=== PATIENT | male | born 1965 | race Caucasian/White ===

== ENCOUNTER 2021-02-27 08:47 | Day surgery (SDC) | payer OTHER ==
[2021-02-27 08:55] LABS: Absolute Lymphocytes (CBC) 2.4 K/uL (0.7-4.9); Basophils % 0.7 % (0-1.3); Hematocrit 44.3 % (39.6-49.0); Lymphocytes % 31.6 % (15.3-44.8); MPV 7.8 fL (7.6-11.3); RBC Red Blood Cell Count 4.85 M/uL (4.33-5.43)
--- NOTE | 2021-02-27 08:59 | RAD REPORT ---
EXAM DESCRIPTION: RAD - Chest Pa And Lat (2 Views) - 02/27/2021 8:42 am CLINICAL HISTORY: preop, pending cystoscopy COMPARISON: Two view chest April 2013 TECHNIQUE: Frontal and lateral views of the chest were obtained. FINDINGS: The lungs are clear. Interstitial pattern matches comparison. Heart size is normal and ce ntral vasculature is within normal limits. No pleural effusion or pneumothorax seen. No acute bony finding noted. No aortic abnormality. IMPRESSION: No acute cardiopulmonary process. No significant change from comparison study.
[2021-02-27 09:07] LABS: Protime INR 1.02
[2021-02-27] MEDS ORDERED: Gentamicin Inj 240 MG in NA CHLORIDE 0.9% 100 ML IV ONE (09:30)
[2021-02-27] MEDS ORDERED: AMPICILLIN SODIUM 2 GM in NA CHLORIDE 0.9% 100 ML IVPB ONE (09:30)
[2021-02-27] MEDS ORDERED: Ringers Lactate 1,000 ML IV ONE (09:39)
[2021-02-27] MEDS ORDERED: FENTANYL CITR 100 MCG/2 ML ONE ×2 (13:12→14:10)
[2021-02-27] MEDS ORDERED: propofoL 200 MG/20 ML VIAL IV ONE (13:12)
[2021-02-27] MEDS ORDERED: MIDAZOLAM HCL 2 MG/2 ML INJ ONE (13:12)
[2021-02-27] MEDS ORDERED: KETOROLAC 30 MG/ML INJ ONE (13:50)
[2021-02-27] MEDS ORDERED: ONDANSETRON 4 MG/2 ML VIAL ONE (13:51)
[2021-02-27] MEDS ORDERED: EPHEDRINE SULF 50 MG/ML VIAL ONE (14:00)
[2021-02-27] MEDS ORDERED: NS 0.9% VIAL 10 ML ONE (14:00)
--- NOTE | 2021-02-27 14:28 | RAD REPORT ---
EXAM DESCRIPTION: RAD - Urethrocystogrphy Retrograde - 02/27/2021 2:17 pm CLINICAL HISTORY: ICD N 20.0 FINDINGS: 18 fluoroscopic spot images obtained. Fluoroscopy time 0.1 minutes Left ureter was cannulated and contrast administered. Subsequently an ureteral stent was placed. Exam ination was performed by Dr Horn
[2021-02-27] MEDS ORDERED: HYDROCODONE/APAP 5/325 MG TAB PO PRN (14:47)
[2021-02-27] MEDS ORDERED: PHENAZOPYRIDINE 100MG TAB PO ONE (14:47)
[2021-02-27 15:18] VITALS: BP 132/77; TEMP 97.3; O2SAT 100
--- NOTE | 2021-02-27 16:42 | EKG ---
Test Date: 2021-02-27 Test Time: 07:35:27 Home Care Companion: LYLE MEASUREMENT RESULTS: Intervals: Rate: 50 ND: 200 QRSD: 102 QT: 446 QTc: 406 [place]: P: 39 ND: 200 QRS: 2 T: 22 INTERPRETIVE STATEMENTS: Sinus bradycardia Incomplete right bundle branch block Possible Inferior infarct, age undetermined Abnormal ECG No previous ECG available for comparison Electronically Signed On 02-27-21 16:42:01 CDT by Mello Paris
[2021-02-27] MEDS ORDERED: SUCCINYLCHOLINE 20 MG/ML (10 ML) IV ONE (16:47)
--- NOTE | 2021-02-27 23:47 | OP ---
Surgeon: JIM DISLA Preoperative Diagnoses: 1.Left obstructive ureterolithiasis approximately 9 mm. 2.Bilateral nephrolithiasis. Postoperative Diagnoses: 1.Left obstructive ureterolithiasis approximately 9 mm. 2.Bilateral nephrolithiasis. Principle Procedures: 1.Cystoscopy. 2.Left retrograde pyelography. 3.Left ureteroscopy with laser lithotripsy. 4.Left ureteral stent placement. Indication For Procedure: Mr. Kevin is a 56-year-old gentleman who presented to the [facility] last week with severe left flank pain associated with the presence of a proximally obstructing approx imately 9 mm mass of stone in the ureter. He had no evidence of acute kidney injury and suggested he was able to manage his pain over the weekend, and so he was scheduled for stent placement with possi ble definitive management of the stone today. Procedure In Detail: The patient was consented in the preoperative holding area before being transfe rred to the operative suite where general anesthesia was induced. He was given ampicillin and gentam icin 240 mg IV antimicrobial prophylaxis and pneumo boots were provided for DVT prophylaxis. He was placed in the lithotomy position, padded and secured to the table appropriately. His genitalia were prepped using Hibiclens and he was draped in standard fashion. The case was begun using a 22-Lao rigid cystoscope to traverse the urethra and into the bladder with ease. The bladder was surveyed, a nd no mucosal lesions, foreign bodies or stones were noted throughout. The ureteral orifices were or thotopic in location, and the left ureteral orifice was cannulated using a 5-Lao ureteral access c atheter and the tip of a Sensor wire. A retrograde pyelogram was then performed. Left retrograde pyelography: Using a 70:30 mixture of Omnipaque and saline, contrast was injected via the 5-Lao ureteral access catheter and did propagate up the distal into the mid ureter where a filling defect was noted with i njection of contrast around it. Of note, on lacquerer imaging taken prior to contrast injection, there w as a radiopaque density in the exact same region likely consistent with a stone. The contrast contin ued on and entered the renal pelvis with ease, which was moderately dilated with some mild caliectasi s. As a result, I then passed the Sensor wire up the 5-Lao ureteral access catheter and it did co il in the upper pole of the kidney. I then passed a dual-lumen catheter up over the Sensor wire into the mid proximal ureter just distal to the stone burden. This was allowed to dilate the ureteral or ifice, and I confirmed the inter ureteral lumen location of the wire by injecting contrast via the se cond lumen of the dual-lumen access catheter. Once confirmed, I passed a second Bentson guidewire vi a the second lumen of the dual-lumen catheter and removed the dual-lumen catheter. Over the Bentson guidewire, I passed a ureteral access sheath into the mid proximal ureter just distal to the stone. I then was able to pass the flexible ureteroscope via the access sheath and encountered the stone bur den obstructing in that location. Then using a 270 nm laser fiber and a laser setting of 0.8 joules and 8 Hz, the stone was quickly fragmented. One of the larger stone fragments after the majority of the mass had been completely disrupted, was then propagated into the upper pole of the kidney by the saline irrigation, and I followed it into the upper pole where I completely fragmented that remaining dominant fragment until there was nothing larger than 1 mm in diameter. I then surveyed the remaind er of each of the calices using antegrade instillation of contrast via the ureteroscope to confirm al l calyceal locations had been visualized, and other than identifying a small additional calculus with in an anterior upper pole calyx, only Jhonathan's plaques were otherwise identified. Once each of the calices had been visualized and all stone burden had been fragmented using the laser, I then surveyed down the renal pelvis into the proximal and into the mid ureter where many of the stone fragments pr eviously disrupted were encountered. Some of them were small enough to be able to be manipulated howard n the ureteral access sheath by retracting the flexible ureteroscope. Others required further laser lithotripsy. In the end, I surveyed the entirety of the ureter from proximal down through mid and di stal, and there was no evidence of any additional stone fragments of significance and no evidence of ureteral injury. As a result, the ureteral access sheath and the ureteroscope were removed, and I ba ckloaded the cystoscope over the indwelling safety wire. I then placed a 6-Lao x 26 cm double-J l eft ureteral stent with ease into the upper pole of the left kidney with a coil observed fluoroscopic ally there. An additional coil was formed cystoscopically within the bladder, and the bladder was de compressed of fluid and urine. Multiple stone fragments were collected and sent for chemical analysi s. The patient's bladder was then decompressed, and he was taken out of the lithotomy position. He was then awakened from general anesthesia, transferred to a stretcher, and then transferred to the re covery room in good condition. Complications: None. Discharge Disposition: He will follow up in 1-2 weeks for cystoscopy and left ureteral stent removal in clinic. He would likely do well to have a metabolic stone profile assessment performed to deciph er the underlying origin of his bilateral nephroureterolithiasis. [place] Voice ID: [id number] Report ID: [id number]
== END 2021-02-27 15:35 | disposition home or self-care (01) ==
LOC: PRE 08:47 → OR 15:35
PROVIDERS: ATTEND Urology
PROC: 0TF78ZZ Fragmentation in Left Ureter, Via Natural or Artificial Opening Endoscopic (ICD-10-PCS; 2021-02-27)
PROC: 0T778DZ Dilation of Left Ureter with Intraluminal Device, Via Natural or Artificial Opening Endoscopic (ICD-10-PCS; principal; 2021-02-27 12:45)
DX: N20.2 Calculus of kidney with calculus of ureter (principal); Z20.822 Contact with and (suspected) exposure to COVID-19
CPT/HCPCS: 93005; 85025; 36415; 85610; 88300; 82360; 71046; 74450; 51610; 52356; U0003; J2704; J0330; J1580; J2250; J3010 ×2; J7120; J2405; J0290